=== PATIENT | male | born 1975 | race Caucasian/White ===

== ENCOUNTER → 2017-02-26 | Day surgery (SDC) | payer OTHER ==
[~2017-02-26] MED LIST: APIX5TAB PO; LOSA25TA PO; PROPOFOL 500 MG/50 ML BTL IV ONE; SIMETHICONE SUSP DROPS 40 MG/0.6 ML 30 ML BTL ONE
--- NOTE | 2017-02-26 09:16 | GIPROC ---
[facility] [address] [facility], [address] COLONOSCOPY PROCEDURE REPORT EXAM DATE: 02/26/2017 PATIENT NAME: Santy Oilvas MR #: [id number] BIRTHDATE: 1975 ENDOSCOPIST: Henry Wallace MD ORDER #: [id number] RAILROAD REPAIRER: Bravo Louis RN STATUS: outpatient INDICATIONS: The patient is a 41 yr old male here for a colonoscopy due to unexplained diarrhea PROCEDURE PERFORMED: Colonoscopy with biopsy MEDICATIONS: None and Per Anesthesia. PREP QUALITY: good ESTIMATED BLOOD LOSS: None CONSENT: The patient understands the risks and benefits of the procedure and understands that these risks include, but are not limited to: sedation, allergic reaction, infection, perforation and/or bleeding. Alternative means of evaluation and treatment include, among others: physical exam, x-rays, and/or surgical intervention. The patient elects to proceed with this endoscopic procedure. medical equipment was checked for proper function. Hand hygiene and appropriate measures for infection prevention was taken. After the risks, benefits and alternatives of the procedure were thoroughly explained, Informed consent was verified, confirmed and timeout was successfully executed by the treatment team. A digital exam revealed no abnormalities of the rectum The EC-[id number] ([id number]) endoscope was introduced through the anus and advanced to the cecum, which was identified by both the appendix and ileocecal valve. The instrument was then slowly withdrawn as the colon was fully examined. COLON FINDINGS: A diminutive smooth sessile polyp was found in the rectum. A polypectomy was performed with cold forceps. The resection was complete and the polyp tissue was completely retrieved. The colon mucosa was otherwise normal. Multiple biopsies were performed. Retroflexed views revealed internal hemorrhoids and Retroflexed views revealed medium internal hemorrhoids The scope was then completely withdrawn from the patient and the procedure terminated. PROCEDURE WITHDRAWAL TIME:7.6minutes ADVERSE EVENTS: There were no complications. IMPRESSIONS: 1. A diminutive sessile polyp was found in the rectum; polypectomy was performed with cold forceps 2. The colon mucosa was otherwise normal; multiple biopsies were performed 3. Retroflexed views revealed internal hemorrhoids 4. Retroflexed views revealed medium internal hemorrhoids 5. Revealed no abnormalities of the rectum RECOMMENDATIONS: 1. Await biopsy results. Biopsy results will not be ready for 7-10 days. If you don't hear from us in two weeks, call our office for results. 2. Yearly hemoccult 3. High fiber diet 4. Follow-up: GI Clinic PRN RECALL: Return 5 years Colonoscopy Henry Wallace MD eSigned: Henry Wallace MD 02/26/2017 9:15 AM cc: Herber Dorado M.D and Kilo Edwards [facility]
--- NOTE | 2017-02-26 09:18 | GIPROC ---
[facility] [address] [facility], [address] EGD PROCEDURE REPORT EXAM DATE: 02/26/2017 PATIENT NAME: Santy Olivas MR #: [id number] BIRTHDATE: 1975 ATTENDING: Henry Wallace MD ORDER #: [id number] STRIP MACHINE TENDER: Bravo Louis RN STATUS: outpatient INDICATIONS: The patient is a 41 yr old male here for an EGD due to unexplained diarrhea PROCEDURE PERFORMED: EGD w/ biopsy MEDICATIONS: None, Per Anesthesia, None, and Per Anesthesia. TOPICAL ANESTHETIC: CONSENT: The patient understands the risks and benefits of the procedure and understands that these risks include, but are not limited to: sedation, allergic reaction, infection, perforation and/or bleeding. Alternative means of evaluation and treatment include, among others: physical exam, x-rays, and/or surgical intervention. The patient elects to proceed with this endoscopic procedure. medical equipment was checked for proper function. Hand hygiene and appropriate measures for infection prevention was taken. After the risks, benefits and alternatives of the procedure were thoroughly explained, Informed consent was verified, confirmed and timeout was successfully executed by the treatment team. The patient was anesthetized with topical anesthesia and the EC-3490Li ([id number]) endoscope was introduced through the mouth and advanced to the second portion of the duodenum. Retroflexed views revealed no abnormalities The gastroscope was then slowly withdrawn and removed. ESOPHAGUS: There was LA Class A esophagitis noted. Multiple biopsies were performed. The endoscopy was otherwise normal. STOMACH: Hx of lap band placement noted. There was mild gastritis in the gastric antrum. Multiple biopsies were performed. DUODENUM: The duodenal mucosa appeared normal. Cold forcep biopsies were taken in the second portion. ADVERSE EVENTS: There were no complications. IMPRESSIONS: 1. There was LA Class A esophagitis noted; multiple biopsies were performed 2. Normal endoscopy otherwise 3. Hx of lap band placement noted 4. There was mild gastritis in the gastric antrum; multiple biopsies were performed 5. Normal duodenal mucosa 6. Retroflexed views revealed no abnormalities RECOMMENDATIONS: 1. Await biopsy results. Biopsy results will not be ready for 7-10 days. If you don't hear from us in two weeks, call our office for biopsy results. 2. Follow-up: GI clinic 4 week(s) PATIENT CONDITION: stable DISPOSITION: Home REPEAT EXAM: Henry Wallace MD eSigned: Henry Wallace MD 02/26/2017 9:18 AM cc: Herber Edwards [facility] [place] PATIENT NAME: Santy Olivas MR#: [id number]
== END | disposition home or self-care (01) ==
LOC: ESDC 06:53
PROVIDERS: ATTEND Internal Medicine Gastroenterology
DX: K29.70 Gastritis, unspecified, without bleeding (principal); K62.1 Rectal polyp; K64.8 Other hemorrhoids; K20.9 Esophagitis, unspecified; Z98.84 Bariatric surgery status
CPT/HCPCS: 88305; 88312

== ENCOUNTER 2017-09-18 13:10 | Observation (INO) | payer OTHER ==
[~2017-09-18] VITALS: Ht 198.1 cm; Wt 180.8 kg
[~2017-09-18 13:10] MED LIST changes: -PROPOFOL 500 MG/50 ML BTL IV ONE; -SIMETHICONE SUSP DROPS 40 MG/0.6 ML 30 ML BTL ONE
[2017-09-18 13:13] VITALS: BP 142/74; TEMP 98.1; O2SAT 99
[2017-09-18] MEDS ORDERED: METO50TA PO (13:20)
[2017-09-18] MEDS ORDERED: CHLO25TA2 PO (13:20)
[2017-09-18] MEDS ORDERED: OMEP20TA93 PO (13:21)
[2017-09-18 13:24] VITALS: BP 136/78; PULSE 96; RESP 18; O2SAT 99
[2017-09-18] MEDS ORDERED: SODIUM CHLORIDE 0.9% FLUSH 10 ML FLUSH IVF PRN (13:30)
--- NOTE | 2017-09-18 13:36 | PD ---
HPI Chief Complaint: Cardiac Complaint Time Seen by Provider: 13:20 Travel History International Travel<30 days: No Contact w/Intl Traveler<30days: No Traveled to known affect area: No History of Present Illness HPI 42-year-old male patient with history of atrial fibrillation currently on Eliquis, follows up with Dr. Tay, has been put on metoprolol for rate control , presents to the ER today because he states that over the last few weeks he has noticed he has getting more tired, and today started having palpitations, dizziness, and chest tightness which she currently rates it a 5 out of 10. He states it feels like somebody is pushing on his anterior sternal area. He was seen by urgent care and they found him to be in A. fib with RVR at a rate of 118 bpm. They sent him to the ER for further evaluation. He states that he did eat and had plenty of water to drink today. He states that the symptoms are now subsiding but the chest tightness is still there and he is still having dizziness. He denies any coughing, fevers, vomiting, abdominal pain, or other symptoms. Modifying Factors: None Associated Signs & Symptoms: Palpitations, dizziness, chest tightness Risk Factors: History of atrial fibrillation PFSH Past Medical History Atrial Fibrillation: Yes Depression: Yes Cardiovascular Problems: Yes Diabetes: No Diminished Hearing: No GERD: Yes Hypertension: Yes Influenza Vaccination: No ?: Not Past Surgical History Other Surgery: Yes (LAP BAND SURG.) Social History Alcohol Use: Yes (3-4 WEEK) Tobacco Use: No Substance Use: No Allergies-Medications (Allergen,Severity, Reaction): Coded Allergies: penicillin G (Unverified Allergy, Unknown, 09/18/17) Reported Meds & Prescriptions Reported Meds & Active Scripts Active Reported Omeprazole 20 Mg Tab 20 Mg PO BID Chlorthalidone 25 Mg Tab 25 Mg PO DAILY Metoprolol Tartrate 50 Mg Tab 50 Mg PO BID Eliquis (Apixaban) 5 Mg Tab 5 Mg PO BID Review of Systems Except as stated in HPI: all other systems reviewed are Neg Physical Exam Narrative GENERAL: Well-developed middle-age male patient currently in mild distress. Awake and oriented x3. SKIN: Focused skin assessment warm/dry. HEAD: Atraumatic. Normocephalic. EYES: Pupils equal and round. No scleral icterus. No injection or drainage. ENT: No nasal bleeding or discharge. Mucous membranes pink and moist. NECK: Trachea midline. No JVD. Supple. CARDIOVASCULAR: Fast and irregularly irregular. No rubs murmurs or gallops. RESPIRATORY: No accessory muscle use. Clear to auscultation. Breath sounds equal bilaterally. GASTROINTESTINAL: Abdomen soft, non-tender, nondistended. Hepatic and splenic margins not palpable. MUSCULOSKELETAL: No obvious deformities. No clubbing. No cyanosis. No edema. NEUROLOGICAL: Awake and alert. No obvious cranial nerve deficits. Motor grossly within normal limits. Normal speech. PSYCHIATRIC: Appropriate mood and affect; insight and judgment normal. Data Data Last Documented VS Vital Signs Date Time Temp Pulse Resp B/P (MAP) Pulse Ox O2 Delivery O2 Flow Rate FiO2 09/18/17 14:37 87 18 124/83 (97) 99 Room Air 09/18/17 13:24 2.00 09/18/17 13:13 98.1 Orders Orders Electrocardiogram (09/18/17 13:20) Ckmb (Isoenzyme) Profile (09/18/17 13:20) Complete Blood Count With Diff (09/18/17 13:20) Comprehensive Metabolic Panel (09/18/17 13:20) Magnesium (Mg) (09/18/17 13:20) Prothrombin Time / Inr (Pt) (09/18/17 13:20) Act Partial Throm Time (Ptt) (09/18/17 13:20) Troponin I (09/18/17 13:20) Ecg Monitoring (09/18/17 13:20) Bilateral Bp Monitoring (09/18/17 13:20) Iv Access Insert/Monitor (09/18/17 13:20) Oximetry (09/18/17 13:20) Oxygen Administration (09/18/17 13:20) Sodium Chloride 0.9% Flush (Ns Flush) (09/18/17 13:30) Chest, Pa & Lat (09/18/17 13:20) CKMB (09/18/17 13:40) CKMB% (09/18/17 13:40) Sodium Chlorid 0.9% 500 Ml Inj (Ns 500 M (09/18/17 14:45) Admit Order (Ed Use Only) (09/18/17 14:55) Labs Laboratory Tests Test 09/18/17 13:40 White Blood Count 8.1 TH/MM3 Red Blood Count 5.23 MIL/MM3 Hemoglobin 15.9 GM/DL Hematocrit 47.1 % Mean Corpuscular Volume 90.0 FL Mean Corpuscular Hemoglobin 30.3 PG Mean Corpuscular Hemoglobin Concent 33.7 % Red Cell Distribution Width 12.4 % Platelet Count 221 TH/MM3 Mean Platelet Volume 7.9 FL Neutrophils (%) (Auto) 68.5 % Lymphocytes (%) (Auto) 21.1 % Monocytes (%) (Auto) 8.1 % Eosinophils (%) (Auto) 1.4 % Basophils (%) (Auto) 0.9 % Neutrophils # (Auto) 5.5 TH/MM3 Lymphocytes # (Auto) 1.7 TH/MM3 Monocytes # (Auto) 0.7 TH/MM3 Eosinophils # (Auto) 0.1 TH/MM3 Basophils # (Auto) 0.1 TH/MM3 CBC Comment DIFF FINAL Differential Comment Prothrombin Time 11.1 SEC Prothromb Time International Ratio 1.1 RATIO Activated Partial Thromboplast Time 31.5 SEC Blood Urea Nitrogen 23 MG/DL Creatinine 1.40 MG/DL Random Glucose 96 MG/DL Total Protein 7.6 GM/DL Albumin 3.8 GM/DL Calcium Level 9.4 MG/DL Magnesium Level 1.9 MG/DL Alkaline Phosphatase 64 U/L Aspartate Amino Transf (AST/SGOT) 23 U/L Alanine Aminotransferase (ALT/SGPT) 40 U/L Total Bilirubin 1.1 MG/DL Sodium Level 139 MEQ/L Potassium Level 3.8 MEQ/L Chloride Level 105 MEQ/L Carbon Dioxide Level 25.1 MEQ/L Anion Gap 9 MEQ/L Estimat Glomerular Filtration Rate 56 ML/MIN Total Creatine Kinase 121 U/L Creatine Kinase MB 1.3 NG/ML Troponin I LESS THAN 0.02 NG/ML MDM Medical Decision Making Medical Screen Exam Complete: Yes Emergency Medical Condition: Yes Medical Record Reviewed: Yes Interpretation(s) EKG shows atrial fibrillation at a rate of 108 bpm. No signs of acute ST elevations or depressions. Laboratory Tests Test 09/18/17 13:40 Monocytes (%) (Auto) 8.1 % (0.0-8.0) Activated Partial Thromboplast Time 31.5 SEC (24.3-30.1) Blood Urea Nitrogen 23 MG/DL (7-18) Creatinine 1.40 MG/DL (0.60-1.30) Total Bilirubin 1.1 MG/DL (0.2-1.0) Estimat Glomerular Filtration Rate 56 ML/MIN (>89) Troponin I LESS THAN 0.02 NG/ML Last 24 hours Impressions Chest X-Ray 09/18/17 1320 Signed Impressions: CONCLUSION: No acute cardiopulmonary process. Differential Diagnosis Dehydration versus electrolyte abnormalities versus ACS versus dysrhythmias Narrative Course Chest x-ray did not show any signs of acute pulmonary processes. EKG shows A. fib with RVR at 108 beats per minute. He is slowly slowed down on his own and IV fluids were given in the ER, suspect that there may be some dehydration causing some of the symptoms. He may have been overheated as well. However, is continued to have chest pains in the ER and a chest pain workup was done and was fairly unremarkable. My plan would be to admit him for further evaluation of chest pain as well. At this point, case was discussed with Dr. Power for admission. Diagnosis Primary Impression: Atrial fibrillation with RVR Additional Impressions: Chest pain Dehydration Admitting Information Admitting Physician Requests: Admit Isi Diggs MD Sep 18, 2017 13:36
[2017-09-18 13:55] LABS: AUTOMATED NEUTROPHIL # 5.5 TH/MM3 (1.8-7.7); BASOPHIL # 0.1 TH/MM3 (0-0.2); BASOPHIL % 0.9 % (0.0-2.0); EOSINOPHIL # 0.1 TH/MM3 (0-0.4); EOSINOPHIL % 1.4 % (0.0-4.0); HEMATOCRIT 47.1 % (39.0-51.0); HEMOGLOBIN 15.9 GM/DL (13.0-17.0); LYMPH % 21.1 % (9.0-44.0); LYMPHOCYTE # 1.7 TH/MM3 (1.0-4.8); MEAN CORPUSCULAR HEMOGLOBIN 30.3 PG (27.0-34.0); MEAN CORPUSCULAR HGB CONC 33.7 % (32.0-36.0); MEAN PLATELET VOLUME 7.9 FL (7.0-11.0); MONO % 8.1 % (0.0-8.0); MONOCYTE # 0.7 TH/MM3 (0-0.9); NEUT % 68.5 % (16.0-70.0); PLATELET COUNT 221 TH/MM3 (150-450); RED BLOOD COUNT 5.23 MIL/MM3 (4.50-5.90); RED CELL DISTRIBUTION WIDTH 12.4 % (11.6-17.2); WHITE BLOOD COUNT 8.1 TH/MM3 (4.0-11.0)
[2017-09-18 14:10] LABS: CHLORIDE 105 MEQ/L (98-107); SODIUM (NA) 139 MEQ/L (136-145)
[2017-09-18 14:11] LABS: INTERNATIONAL NORMALIZED RATIO 1.1 RATIO; PROTHROMBIN TIME - PATIENT 11.1 SEC (9.8-11.6)
[2017-09-18 14:14] LABS: CALCIUM 9.4 MG/DL (8.5-10.1)
[2017-09-18 14:15] LABS: ALBUMIN 3.8 GM/DL (3.4-5.0); BICARBONATE 25.1 MEQ/L (21.0-32.0); BLOOD UREA NITROGEN 23 MG/DL (7-18); GLUCOSE,RANDOM 96 MG/DL (74-106); MAGNESIUM 1.9 MG/DL (1.5-2.5)
[2017-09-18 14:18] LABS: ALT (GPT) 40 U/L (12-78); AST (GOT) 23 U/L (15-37); GLOMERULAR FILTRATION RATE 56 ML/MIN (>89)
[2017-09-18 14:19] LABS: TOTAL BILIRUBIN ADULT 1.1 MG/DL (0.2-1.0)
[2017-09-18 14:20] LABS: TOTAL PROTEIN 7.6 GM/DL (6.4-8.2)
[2017-09-18 14:21] LABS: ALKALINE PHOSPHATASE 64 U/L (45-117)
[2017-09-18 14:23] LABS: TROPONIN I LESS THAN 0.02 NG/ML (0.02-0.05)
--- NOTE | 2017-09-18 14:31 | RADRPT ---
EXAM DATE: 09/18/2017 1:50 PM EDT AGE/SEX: 42 years / Male INDICATIONS: Syncopal episode, heart palpations, chest pressure/tightness, short of breath. CLINICAL DATA: This is the patient's initial encounter. Patient reports that signs and symptoms have been present for 1 day and indicates a pain score of 5/10. MEDICAL/SURGICAL HISTORY: Hypertension. Gastroesophageal reflux disease. A-fib. Sleep apnea. . Lap band. COMPARISON: No prior exams available for comparison. FINDINGS: PA and lateral views of the chest demonstrate the lungs to be symmetrically aerated without evidence of mass, infiltrate or effusion. The cardiomediastinal contours are unremarkable. Osseous structures are intact. CONCLUSION: No acute cardiopulmonary process. Electronically signed by: Herber Gilbert MD 09/18/2017 2:30 PM EDT
[2017-09-18 14:37] VITALS: BP 124/83; PULSE 87; RESP 18; O2SAT 99
[2017-09-18] MEDS ORDERED: SODIUM CHLORID 0.9% 500 ML INJ 500 ML IV ONE (14:45)
[2017-09-18] MEDS: SODIUM CHLOR 0.9% 1000 ML INJ 1,000 ML IV SCH (15:01)
[2017-09-18] MEDS ORDERED: ACETAMINOPHEN 325 MG TAB PO PRN (15:15)
[2017-09-18] MEDS ORDERED: SENNOSIDES 8.6 MG TAB PO PRN (15:15)
[2017-09-18] MEDS ORDERED: SODIUM CHLORIDE 0.9% FLUSH 10 ML FLUSH IV FLUSH PRN (15:15)
[2017-09-18] MEDS ORDERED: MAGNESIUM HYDROXIDE SUSP 30 ML CUP PO PRN (15:15)
[2017-09-18] MEDS ORDERED: LACTULOSE SYRUP 20 GM/30 ML CUP PO PRN (15:15)
[2017-09-18] MEDS ORDERED: BISACODYL 10 MG SUPP RECTAL PRN (15:15)
[2017-09-18 16:22] VITALS: PULSE 80
[2017-09-18 17:00] VITALS: BP_SYST 131; BP_DIAS 83; BP_DIAS 84; PULSE 110; RESP 16; RESP 18; TEMP 97.7; O2SAT 98; O2SAT 99
--- NOTE | 2017-09-18 19:11 | EKG ---
Date Performed: 09/18/2017 Time Performed: 13:12:50 PTAGE: 42 years EKG: ATRIAL FIBRILLATION WITH RAPID VENTRICULAR RESPONSE ABNORMAL RHYTHM ECG PREVIOUS TRACING : 02/02/2016 09.10 When compared to prior EKG,patient now appears to be in atr ial firbrillation with rapid ventricular rate DOCTOR: Mary Umana Interpretating Date/Time 09/18/2017 19:09:21
[2017-09-18] MEDS: SODIUM CHLORIDE 0.9% FLUSH 10 ML FLUSH IV FLUSH SCH (20:47)
[2017-09-18] MEDS: DOCUSATE SODIUM 50 MG/SENNA 8.6 MG TAB PO SCH (21:00)
[2017-09-18] MEDS: METOPROLOL TARTRATE 50 MG TAB PO SCH (21:31)
[2017-09-18] MEDS: APIXABAN 5 MG TABLET PO SCH (21:31)
[2017-09-19] VITALS: BP 137/73; PULSE 81; RESP 20; TEMP 96.2; O2SAT 100
[2017-09-19] MEDS: SODIUM CHLOR 0.9% 1000 ML INJ 1,000 ML IV SCH (01:01)
[2017-09-19 04:00] VITALS: BP 103/50; PULSE 71; RESP 18; TEMP 96.4; O2SAT 98
[2017-09-19 06:18] LABS: BICARBONATE 22.8 MEQ/L (21.0-32.0); CALCIUM 8.4 MG/DL (8.5-10.1); CREATININE 1.1 MG/DL (0.60-1.30)
--- NOTE | 2017-09-19 07:50 | PD.CONS ---
HPI Consult Requested By Primary Care Physician Herber Dorado, DO History of Present Illness 42-year-old morbidly obese male with past medical history of A. fib, HTN, GERD who presented for nausea, dizziness, shortness of breath, and heart racing. 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 He began feeling nauseous, dizzy, short of breath , and with heart racing sensation. He went to urgent care and they told him to go to the ED. Patient was found to have rapid A. fib so he was admitted for further evaluation. The patient's labs at presentation suggests dehydration which have improved after holding his home chlorthalidone and giving IVF overnight. His heart rate is currently atrial fibrillation in the 80s. The patient is normally very active and walks a few miles a week with some shortness of breath. We have been working him up for shortness of breath as outpatient with recent normal echocardiogram. He does get some chest heaviness when he is short of breath, chronic problem, no acute change, previously negative Lexiscan for this, and he denies any specific chest pains at this time. He attributes his shortness of breath to gaining 100 pounds over the past 2 years with failed lap band and is currently undergoing workup for gastric sleeve. He actually has an appointment with us this coming week for preoperative evaluation. He has wanted to avoid having an A. fib ablation in favor of losing weight. He is feeling much better this time and hoping to follow-up with his outpatient for any further workup that may be needed. (Óscar Mcwilliams) Review of Systems Negative except as stated in HPI (Óscar Mcwilliams) Past Family Social History Allergies: Coded Allergies: penicillin G (Unverified Allergy, Unknown, 09/18/17) Past Medical History Atrial fibrillation with failed DCC 2015 Hypertension GERD Morbid obesity Past Surgical History LAP-BAND Reported Medications Reported Meds & Active Scripts Active Reported Omeprazole 20 Mg Tab 20 Mg PO BID Chlorthalidone 25 Mg Tab 25 Mg PO DAILY Metoprolol Tartrate 50 Mg Tab 50 Mg PO BID Eliquis (Apixaban) 5 Mg Tab 5 Mg PO BID Active Ordered Medications Current Medications Medications (Trade) Dose Ordered Sig/Ashkan Route Start Time Stop Time Status Last Admin Sodium Chloride 1,000 ml @ 100 mls/hr Q10H IV 09/18/17 15:01 09/19/17 01:01 (NS Flush) 2 ml UNSCH PRN IV FLUSH 09/18/17 15:15 (NS Flush) 2 ml BID IV FLUSH 09/18/17 21:00 (Tylenol) 650 mg Q6H PRN PO 09/18/17 15:15 (Mary-Colace) 1 tab BID PO 09/18/17 21:00 (Milk Of Magnesia Liq) 30 ml Q12H PRN PO 09/18/17 15:15 (Senokot) 17.2 mg Q12H PRN PO 09/18/17 15:15 (Dulcolax Supp) 10 mg DAILY PRN RECTAL 09/18/17 15:15 (Lactulose Liq) 30 ml DAILY PRN PO 09/18/17 15:15 (Eliquis) 5 mg BID PO 09/18/17 21:00 09/18/17 21:31 (Lopressor) 50 mg BID PO 09/18/17 21:00 09/18/17 21:31 (Protonix) 40 mg DAILY PO 09/19/17 09:00 Social History Occasional alcohol use (Óscar Mcwilliams) Physical Exam Vital Signs Vital Signs Date Time Temp Pulse Resp B/P (MAP) Pulse Ox O2 Delivery O2 Flow Rate FiO2 09/19/17 04:00 96.4 71 18 103/50 (67) 98 09/19/17 00:00 96.2 81 20 137/73 (94) 100 09/18/17 17:00 97.7 110 16 131/84 (100) 99 09/18/17 17:00 97.7 110 18 131/83 (99) 98 09/18/17 16:22 80 09/18/17 15:27 09/18/17 14:37 87 18 124/83 (97) 99 Room Air 09/18/17 14:37 102 09/18/17 13:24 96 18 136/78 (97) 99 Nasal Cannula 2.00 09/18/17 13:23 99 Nasal Cannula 2.00 09/18/17 13:16 110 18 99 Room Air 09/18/17 13:13 98.1 106 18 142/74 (96) 99 Physical Exam GENERAL: Well-developed well-nourished. Morbidly obese. In no acute distress. NECK: No carotid bruits. No JVD. CARDIOVASCULAR: Irregular controlled rate and irregular rhythm. No murmur appreciated. RESPIRATORY: No accessory muscle use. Clear to auscultation. Breath sounds equal bilaterally. MUSCULOSKELETAL: No clubbing or cyanosis. No edema. NEUROLOGICAL: Awake and alert. Normal speech. Laboratory Laboratory Tests Test 09/18/17 13:40 09/18/17 18:04 09/19/17 00:16 White Blood Count 8.1 Red Blood Count 5.23 Hemoglobin 15.9 Hematocrit 47.1 Mean Corpuscular Volume 90.0 Mean Corpuscular Hemoglobin 30.3 Mean Corpuscular Hemoglobin Concent 33.7 Red Cell Distribution Width 12.4 Platelet Count 221 Mean Platelet Volume 7.9 Neutrophils (%) (Auto) 68.5 Lymphocytes (%) (Auto) 21.1 Monocytes (%) (Auto) 8.1 Eosinophils (%) (Auto) 1.4 Basophils (%) (Auto) 0.9 Neutrophils # (Auto) 5.5 Lymphocytes # (Auto) 1.7 Monocytes # (Auto) 0.7 Eosinophils # (Auto) 0.1 Basophils # (Auto) 0.1 CBC Comment DIFF FINAL Differential Comment Prothrombin Time 11.1 Prothromb Time International Ratio 1.1 Activated Partial Thromboplast Time 31.5 Blood Urea Nitrogen 23 21 Creatinine 1.40 1.10 Random Glucose 96 120 Total Protein 7.6 Albumin 3.8 Calcium Level 9.4 8.4 Magnesium Level 1.9 Alkaline Phosphatase 64 Aspartate Amino Transf (AST/SGOT) 23 Alanine Aminotransferase (ALT/SGPT) 40 Total Bilirubin 1.1 Sodium Level 139 139 Potassium Level 3.8 3.5 Chloride Level 105 106 Carbon Dioxide Level 25.1 22.8 Anion Gap 9 10 Estimat Glomerular Filtration Rate 56 73 Total Creatine Kinase 121 Creatine Kinase MB 1.3 Troponin I LESS THAN 0.02 LESS THAN 0.02 LESS THAN 0.02 (Óscar Mcwilliams) Result Diagram: 09/18/17 1340 09/19/17 0016 Imaging Last Impressions Chest X-Ray 09/18/17 1320 Signed Impressions: CONCLUSION: No acute cardiopulmonary process. (Óscar Mcwilliams) Assessment and Plan Assessment and Plan 42-year-old morbidly obese male with past medical history of A. fib, HTN, GERD who presented for nausea, dizziness, shortness of breath, and heart racing A. fib with RVR: Likely secondary to dehydration. Rate is improved overnight after IV hydration and is currently controlled on home metoprolol. Continue Eliquis for anticoagulation. Shortness of breath: Chronic. Previous negative outpatient workup, possibly secondary to body habitus. Chest x-ray is negative. Can continue outpatient follow-up for this. No further inpatient workup needed at this time. Patient can continue scheduled outpatient follow-up with us in the coming week. Discussed Condition With Patient, Dr. Tono Sinha (Óscar Mcwilliams) Assessment and Plan ok to dc fu in opd (Sharath Tay MD) Óscar Mcwilliams Sep 19, 2017 07:50 Sharath Tay MD Sep 19, 2017 08:14
[2017-09-19 08:00] VITALS: BP 119/65; PULSE 79; RESP 18; TEMP 97.7; O2SAT 98
[2017-09-19] MEDS: METOPROLOL TARTRATE 50 MG TAB PO SCH (08:19)
[2017-09-19] MEDS: SODIUM CHLORIDE 0.9% FLUSH 10 ML FLUSH IV FLUSH SCH (08:20)
[2017-09-19] MEDS: APIXABAN 5 MG TABLET PO SCH (08:20)
[2017-09-19] MEDS: DOCUSATE SODIUM 50 MG/SENNA 8.6 MG TAB PO SCH (08:21)
[2017-09-19] MEDS ORDERED: PANTOPRAZOLE SOD 40 MG DELAYED RELEASE TAB PO SCH (09:00)
--- NOTE | 2017-09-19 11:27 | HHI.HP ---
HPI Service [facility] Hospitalists Primary Care Physician Herber Dorado, DO Admission Diagnosis Chest pain/A. fib with RVR Travel History International Travel<30 Days: No Contact w/Intl Traveler <30 Da: No Traveled to Known Affected Are: No History of Present Illness This is a very pleasant 42-year-old male with past medical history of atrial fibrillation, hypertension, morbid obesity who presented to the ER yesterday evening with chest pain, shortness of breath and dizziness. The patient works in his own construction company and states he was outside yesterday for hours. He started to get quite dizzy and short of breath with exertion. He went to an urgent care who referred him to the ER. At the urgent care he was found to be in A. fib with mild tachycardia at 120. By the time he got to the ER heart rate was normal. The patient states that he has been getting short of breath with exertion over the past several months which she attributes to weight gain. Per his automation engineering manager Dr. Arevalo this is not a new finding for him. He does have a negative Lexiscan stress test in 2016. The patient also had a DC cardioversion in the past which failed. Patient had history of lap band about 4 years ago and is currently saving up money for a sleeve gastrectomy. Patient does not have any chest pain or pressure at rest. He was mildly dehydrated on admission with cr of 1.4. EKG showed afib with mild tachycardia. Serial cardiac enzymes have been negative. 10 pt ROS otherwise negative. Past Family Social History Past Medical History HTN GERD Morbid obesity afib Past Surgical History lap band Reported Medications Allergies Coded Allergies Type Severity Reaction Last Updated Verified penicillin G Allergy Unknown 09/18/17 No Active Scripts Medications Dose Route/Sig Max Daily Dose Days Date Category Omeprazole 20 Mg Tab 20 Mg PO BID 09/18/17 Reported Chlorthalidone 25 Mg Tab 25 Mg PO DAILY 09/18/17 Reported Metoprolol Tartrate 50 Mg Tab 50 Mg PO BID 09/18/17 Reported Eliquis (Apixaban) 5 Mg Tab 5 Mg PO BID 02/02/16 Reported Allergies: Coded Allergies: penicillin G (Unverified Allergy, Unknown, 09/18/17) Family History reviewed, NC Social History no et/t/d Physical Exam Vital Signs Vital Signs Date Time Temp Pulse Resp B/P (MAP) Pulse Ox O2 Delivery O2 Flow Rate FiO2 09/19/17 08:00 97.7 79 18 119/65 (83) 98 09/19/17 04:00 96.4 71 18 103/50 (67) 98 09/19/17 00:00 96.2 81 20 137/73 (94) 100 09/18/17 17:00 97.7 110 16 131/84 (100) 99 09/18/17 17:00 97.7 110 18 131/83 (99) 98 09/18/17 16:22 80 09/18/17 15:27 09/18/17 14:37 87 18 124/83 (97) 99 Room Air 09/18/17 14:37 102 09/18/17 13:24 96 18 136/78 (97) 99 Nasal Cannula 2.00 09/18/17 13:23 99 Nasal Cannula 2.00 09/18/17 13:16 110 18 99 Room Air 09/18/17 13:13 98.1 106 18 142/74 (96) 99 Physical Exam GENERAL: This is a well-nourished, well-developed very pleasant morbidly obese male patient, in no apparent distress. SKIN: No rashes, ecchymoses or lesions. Cool and dry. HEAD: Atraumatic. Normocephalic. EYES: Pupils equal round and reactive. Extraocular motions intact. No scleral icterus. No injection or drainage. NECK: Trachea midline. No JVD or lymphadenopathy. Supple, nontender, no meningeal signs. CARDIOVASCULAR: Irregular rate and rhythm without murmurs, gallops, or rubs. RESPIRATORY: Clear to auscultation. Breath sounds equal bilaterally. No wheezes , rales, or rhonchi. GASTROINTESTINAL: Abdomen soft, non-tender, nondistended. MUSCULOSKELETAL: chronic 1+ pedal edema with venous stasis changes of b/l LE. NEUROLOGICAL: Awake and alert. Motor and sensory grossly within normal limits. Normal speech. Laboratory Laboratory Tests Test 09/18/17 13:40 09/18/17 18:04 09/19/17 00:16 White Blood Count 8.1 Red Blood Count 5.23 Hemoglobin 15.9 Hematocrit 47.1 Mean Corpuscular Volume 90.0 Mean Corpuscular Hemoglobin 30.3 Mean Corpuscular Hemoglobin Concent 33.7 Red Cell Distribution Width 12.4 Platelet Count 221 Mean Platelet Volume 7.9 Neutrophils (%) (Auto) 68.5 Lymphocytes (%) (Auto) 21.1 Monocytes (%) (Auto) 8.1 Eosinophils (%) (Auto) 1.4 Basophils (%) (Auto) 0.9 Neutrophils # (Auto) 5.5 Lymphocytes # (Auto) 1.7 Monocytes # (Auto) 0.7 Eosinophils # (Auto) 0.1 Basophils # (Auto) 0.1 CBC Comment DIFF FINAL Differential Comment Prothrombin Time 11.1 Prothromb Time International Ratio 1.1 Activated Partial Thromboplast Time 31.5 Blood Urea Nitrogen 23 21 Creatinine 1.40 1.10 Random Glucose 96 120 Total Protein 7.6 Albumin 3.8 Calcium Level 9.4 8.4 Magnesium Level 1.9 Alkaline Phosphatase 64 Aspartate Amino Transf (AST/SGOT) 23 Alanine Aminotransferase (ALT/SGPT) 40 Total Bilirubin 1.1 Sodium Level 139 139 Potassium Level 3.8 3.5 Chloride Level 105 106 Carbon Dioxide Level 25.1 22.8 Anion Gap 9 10 Estimat Glomerular Filtration Rate 56 73 Total Creatine Kinase 121 Creatine Kinase MB 1.3 Troponin I LESS THAN 0.02 LESS THAN 0.02 LESS THAN 0.02 Result Diagram: 09/18/17 1340 09/19/17 0016 Imaging Last Impressions Chest X-Ray 09/18/17 1320 Signed Impressions: CONCLUSION: No acute cardiopulmonary process. Caprini VTE Risk Assessment Caprini VTE Risk Assessment: Mod/High Risk (score >= 2) Caprini Risk Assessment Model Point Value = 1 Point Value = 2 Point Value = 3 Point Value = 5 Age 41-60 Minor surgery BMI > 25 kg/m2 Swollen legs Varicose veins or History of unexplained or recurrent spontaneous Oral contraceptives or hormone replacement Sepsis (< 1 month) Serious lung disease, including pneumonia (< 1 month) Abnormal pulmonary function Acute myocardial infarction Congestive heart failure (< 1 month) History of inflammatory bowel disease Medical patient at bed rest Age 61-74 Arthroscopic surgery Major open surgery (> 45 min) Laparoscopic surgery (> 45 min) Malignancy Confined to bed (> 72 hours) Immobilizing plaster cast Central venous access Age >= 75 History of VTE Family history of VTE Factor V Leiden Prothrombin [id number] Lupus anticoagulant Anticardiolipin antibodies Elevated serum homocysteine Heparin-induced thrombocytopenia Other congenital or acquired thrombophilia Stroke (< 1 month) Elective arthroplasty Hip, pelvis, or leg fracture Acute spinal cord injury (< 1 month) Prophylaxis Regimen Total Risk Factor Score Risk Level Prophylaxis Regimen 0-1 Low Early ambulation 2 Moderate Order ONE of the following: *Sequential Compression Device (SCD) *Heparin 5000 units SQ BID 3-4 Higher Order ONE of the following medications: *Heparin 5000 units SQ TID *Enoxaparin/Lovenox 40 mg SQ daily (WT < 150 kg, CrCl > 30 mL/min) *Enoxaparin/Lovenox 30 mg SQ daily (WT < 150 kg, CrCl > 10-29 mL/min) *Enoxaparin/Lovenox 30 mg SQ BID (WT < 150 kg, CrCl > 30 mL/min) AND/OR *Sequential Compression Device (SCD) 5 or more Highest Order ONE of the following medications: *Heparin 5000 units SQ TID (Preferred with Epidurals) *Enoxaparin/Lovenox 40 mg SQ daily (WT < 150 kg, CrCl > 30 mL/min) *Enoxaparin/Lovenox 30 mg SQ daily (WT < 150 kg, CrCl > 10-29 mL/min) *Enoxaparin/Lovenox 30 mg SQ BID (WT < 150 kg, CrCl > 30 mL/min) AND *Sequential Compression Device (SCD) Assessment and Plan Problem List: (1) Chest pain ICD Codes: R07.9 - Chest pain, unspecified Status: Acute (2) Atrial fibrillation with RVR ICD Codes: I48.91 - Unspecified atrial fibrillation Status: Acute (3) Dehydration ICD Codes: E86.0 - Dehydration Status: Acute Assessment and Plan -Chest pain, shortness of breath, afib with mild RVR - now resolved. negative serial enzymes and EKG. had negative lexiscan in 2016. some of his symptoms ( shortness of breath with exertion and chest heaviness when short of breath are somewhat chronic for him). He has been seen and cleared by cardiology, and will f/u with Dr. Arevalo next week. he will continue on his home dose of eliquis and metoprolol. -Mild [place] and mild dehydration. On admission, his chlorthalidone was held and he was given gentle IV fluids overnight. He feels back to baseline. He has been seen by cardiology and cleared for discharge. He will follow-up with Dr. arevalo next week. I did discuss the importance of making sure he is drinking plenty of fluids especially being outside and on the chlorthalidone. I did ask him to follow-up with his PCP Dr. Dorado next week. DC home today. Yaneth Power MD Sep 19, 2017 11:27
== END 2017-09-19 13:20 | disposition home or self-care (01) ==
LOC: PHED 13:10 → PHEDA 14:56 → PH3B 15:30
PROVIDERS: ADMIT Family Medicine; ATTEND Family Medicine
DX: R07.89 Other chest pain (principal); R06.02 Shortness of breath; N17.9 Acute kidney failure, unspecified; E86.0 Dehydration; I48.91 Unspecified atrial fibrillation; I87.8 Other specified disorders of veins; R60.0 Localized edema; R00.0 Tachycardia, unspecified; I10 Essential (primary) hypertension; K21.9 Gastro-esophageal reflux disease without esophagitis; F32.9 Major depressive disorder, single episode, unspecified; E66.01 Morbid (severe) obesity due to excess calories; Z79.01 Long term (current) use of anticoagulants; Z79.899 Other long term (current) drug therapy; Z98.84 Bariatric surgery status
CPT/HCPCS: 71046; 80048; 80053; 82550; 82552; 83735; 84484; 85025; 85610; 85730; 93005; 96360; 96361; 99285; G0378; J7030; J7040

== ENCOUNTER 2017-12-03 07:30 | Inpatient (IN) ==
[2017-12-10] MEDS ORDERED: Chlorhexidine Gluconate 2% 1 Pack (2 Cloths) TOPICAL ONE (07:46)
[2017-12-10] MEDS ORDERED: Metoprolol Tartrate 25 MG Tablet PO ONE (07:46)
[2017-12-10] MEDS ORDERED: Sodium Chlor 0.9% Inj 500 ML IV.SIG SCH (08:00)
[2017-12-10] MEDS ORDERED: Scopalamine 1.5 MG Patch T-DERMAL SCH (08:00)
[2017-12-10] MEDS ORDERED: Vancomycin Inj 1,000 MG in Sodium Chlor 0.9% Inj 250 ML IV.SIG SCH (08:00)
[2017-12-10] MEDS ORDERED: fentaNYL Citrate Inj 100 MCG/2 ML Ampul ONE ×2 (13:36→17:31)
[2017-12-10] MEDS ORDERED: Bupivacaine/Epinephrine Inj 0.25% 50 ML Vial ONE (13:43)
[2017-12-10] MEDS ORDERED: Neostigmine Inj 5 MG/5 ML Syringe IV.PUSH ONE (14:00)
[2017-12-10] MEDS ORDERED: Glycopyrrolate Inj 1 MG/5 ML Syringe IV.PUSH ONE (14:00)
[2017-12-10] MEDS ORDERED: Succinylcholine Inj 100 MG/5 ML Syringe IV.PUSH ONE (14:00)
[2017-12-10] MEDS ORDERED: Lidocaine PF 1% Inj 5 ML Syringe INFILTRATN ONE (14:00)
[2017-12-10] MEDS ORDERED: Phenylephrine/NS 1000 MCG/10ML Syringe IV.PUSH ONE (14:00)
--- NOTE | 2017-12-10 14:36 | P.OP ---
- Preoperative Diagnosis (1) Morbid obesity with BMI of 50.0-59.9, adult - Postoperative Diagnosis (1) Morbid obesity with BMI of 50.0-59.9, adult Date of procedure: 12/10/17 Procedure: lap band removal conversion to sleeve gastrectomy Anesthesia: GETA Surgeon: Sj Giles MD Estimated blood loss (mL): 10 Pathology: none sent Operation and Findings: lap band with adhesions
[2017-12-10] MEDS ORDERED: Acetaminophen-HYDROcodone 325/7.5 Liq 15 ML UDC PO PRN (17:29)
[2017-12-10] MEDS ORDERED: diphenhydrAMINE HCl 12.5 MG/5 ML Elixir UDC PO PRN (17:29)
[2017-12-10] MEDS ORDERED: Post-op Orders (for Pharmacy) OTHER STA (17:29)
[2017-12-10] MEDS ORDERED: KCL 20 mEq/D5W/NaCl 0.45% Inj 1,000 ML ONE (17:42)
[2017-12-10] MEDS ORDERED: *morphine SULFATE 10 MG/ML PERIprocedure ONLY ONE (17:46)
[2017-12-10] MEDS: KCL 20 mEq/D5W/NaCl 0.45% Inj 1,000 ML IV.CONT SCH (17:55)
[2017-12-10] MEDS ORDERED: Morphine Inj 30 MG/30 ML PCA.VIAL PCA ONE (17:59)
[2017-12-10] MEDS ORDERED: Morphine Inj 30 MG/30 ML PCA.VIAL PCA PRN (18:13)
[2017-12-10] MEDS ORDERED: Naloxone Inj 0.4 MG/ML Vial IV.PUSH PRN (18:13)
[2017-12-10] MEDS ORDERED: *Labetalol HCl Inj 100 MG/20 ML Vial PERIprocedural Use ONLY IV.PUSH ONE (19:08)
--- NOTE | 2017-12-10 21:27 | MP ---
cc: Sj Giles MD DATE OF OPERATION: 12/10/2017 PREOPERATIVE DIAGNOSIS: Morbid obesity, body mass index of 51. History of laparoscopic gastric band with obstructive sleep apnea, hypertension, hypercholesterolemia. POSTOPERATIVE DIAGNOSES: Morbid obesity, body mass index of 51. History of laparoscopic gastric band with obstructive sleep apnea, hypertension, hypercholesterolemia. PROCEDURE PERFORMED: 1. Laparoscopic band removal and all of its components. 2. Laparoscopic sleeve gastrectomy over a ViSiGi 36-American bougie. 3. Laparoscopic lysis of adhesions. SURGEON: Sj Giles MD DIRECTOR NEW PRODUCT: Alfonso Leggett MD. Dr. Leggett assisted with camera control and retraction ANESTHESIA: GETA. IV FLUIDS: See anesthesia sheet. ESTIMATED BLOOD LOSS: 20 mL. DRAINS: None. COMPLICATIONS: None. WOUND CLASSIFICATION: Clean/contaminated. SPECIMENS: None. FINDINGS: Scarring around the GE junction where a laparoscopic band placement was. No leak with methylene blue to the sleeve staple line. Minimal bleeding points, controlled. Several intra-abdominal adhesions. Examination on the back table of port and tubing confirmed complete removal of the port and all its components. INDICATIONS: The patient is a morbidly obese male with history of laparoscopic gastric band in 2005. Also, weight gain, malfunction band. Multiple medical issues with apnea, hypertension, hypercholesteremia; multiple attempts at weight loss without success. Therefore, decision was for band removal and conversion sleeve gastrectomy. DETAILS OF PROCEDURE: The patient was taken to the operating suite, placed in supine position. He was prepped and draped in usual sterile fashion after induction of general endotracheal anesthesia. Brief timeout demonstrating correct patient, procedure, surgical site. We were all in agreement with this. Attention first directed to the umbilicus where local anesthetic was injected, 15 cm subxiphoid. A 15 blade was used to make a stab jordon incision. The Visiport, 5 mm scope was entered into the abdomen safely. Abdomen was insufflated to 15 mmHg pneumoperitoneum. On cursory inspection, no evidence of injury. Several other ports were placed, including a right upper quadrant 5 mm port for liver retraction, a right mid port 15 size, was placed; a left lower quadrant 5 mm port; and a left lateral quadrant 5 mm port. The patient was placed in reverse Trendelenburg and airplaned to the right. Marcella flex liver retractor was placed to retract the liver. There were several adhesions between the band and the liver and the GE junction and the stomach, preventing initial placement of the retractor. These bands were lysed to mobilize the band and the retractor of the liver was readjusted or replaced. The adhesions to the gastric band were lysed and taken down. The buckle was cut and removed from the abdomen. The band portion was also removed from the abdomen. The chronic scarred tract was identified. Tract was lysed and mobilized. GE junction was mobilized to identify left dusty as well. There were minimal bleeding points, small pieces of SNoW anticoagulant was placed at the GE junction. Then, attention was directed to the greater curvature of the stomach. The gastrocolic ligament was taken down from the greater curvature of the stomach 5 cm from the pylorus, using Harmonic scalpel all the way up to the GE junction and 1 cm from this. Again, noted some scarring at the GE junction. Once the gastrocolic ligament was mobilized off the greater curvature, a ViSiGi 36-American bougie was entered and advanced down the esophagus into the stomach, and placed just proximal to pylorus. An Endo GI stapler was obtained and used with a reinforced SeamGuard, initial black load followed by green loads, removing approximately 75% of the stomach. The extra stomach scarring again was lysed and mobilized. The stomach staple line was done with a full view of stomach medially approximately 1.5 cm lateral to the GE junction. Next, methylene blue was used to check the staple line. Three syringes were used, 180 mL, without evidence of leak. There was some minimal bleeding along the staple line, which 5 mm clips were placed and small bleeding in the mesentery, which was clipped. Also, small pieces of SNoW were placed again to achieve anticoagulation, along with assistance of Harmonic scalpel. Next Evicel was placed along the staple line and in the GE junction and the mesentery. Posterior attachments noted to be relatively intact to the posterior stomach. Next, the ViSiGi bougie was removed and the Marcella-Flex retractor was removed as well. The stomach was removed from the 15 mm right lower quadrant trocar. A 0 Vicryl [id number] suture was used as a transfascial suture to close the peritoneum over the 15 mm trocar. The abdomen then desufflated. Dr. Leggett assisted with camera control and retraction The midline 5 mm trocar incision was extended due to its proximity of the port, this was done with a 15 blade. Further dissection was done with electric Bovie cautery in order to remove the port from the port pocket. Port was identified and grasped with a Bebeto clamp and the sutures were incised and in order to mobilize and remove the port. The scar capsule was also removed as well. Electric Bovie cautery was used for hemostasis. The port tubing was confirmed to fit on the previously removed band, noted to be one single solid piece, confirming removal of the entirety of tubing and port and band components. This was examined on the back table. Then, 0 Prolene was used to close the port pocket, 3-0 Vicryl was used to close the subcutaneous tissue in layers. A 4-0 Monocryl used at all skin incisions, subcuticular suture, followed by sterile dressings including Steri-Strips and Mastisol. The patient tolerated the procedure well. There were no intraoperative complications. All lap and instrument counts were correct at the end of the procedure. The patient was extubated and taken stable to PACU. MD JABIER Cast/suleman , 06:04 PM , 06:19 PM ELVIN
[2017-12-10] MEDS ORDERED: Enoxaparin Inj 40 MG/0.4 ML Syringe SQ SCH (21:30)
[2017-12-11] MEDS: KCL 20 mEq/D5W/NaCl 0.45% Inj 1,000 ML IV.CONT SCH ×2 (01:38→14:07)
[2017-12-11] MEDS ORDERED: Vancomycin Inj 1,000 MG in Sodium Chlor 0.9% Inj 250 ML IV.SIG SCH (03:00)
[2017-12-11 06:38] LABS: Baso % (Auto) 0.1 % (0.0-2.0); Hematocrit 44.2 % (39.0-51.0); Hemoglobin 15.2 gm/dL (13.0-17.0); Lymph # (Auto) 0.7 th/mm3 (1.0-4.8); Lymph % (Auto) 7.5 % (9.0-44.0); Mean Corpuscular HGB Conc 34.4 % (32.0-36.0); Mean Corpuscular Hemoglobin 31.1 pg (27.0-34.0); Mean Corpuscular Volume 90.3 fL (80.0-100.0); Mean Platelet Volume 8.4 fL (7.0-11.0); Mono # (Auto) 0.5 th/mm3 (0.0-0.9); Mono % (Auto) 4.9 % (0.0-8.0); Neut # (Auto) 8.7 th/mm3 (1.8-7.7); Neut % (Auto) 87.5 % (16.0-70.0); Platelet Count 199 th/mm3 (150-450); Red Blood Count 4.89 mil/mm3 (4.50-5.90); Red Cell Distribution Width 13.2 % (11.6-17.2)
[2017-12-11 07:08] LABS: Calcium 8.6 mg/dL (8.5-10.1); Carbon Dioxide 24.5 meq/L (21.0-32.0); Potassium 3.8 meq/L (3.5-5.1)
[2017-12-11 08:10] VITALS: O2SAT 94
[2017-12-11 12:49] VITALS: BP 125/80; PULSE 83; RESP 18; TEMP 98.9
--- NOTE | 2017-12-11 13:07 | P.PNGS ---
Subjective Patient reports: no new complaints, feels better (no acute issues,doing well, ambulating) Physical Exam Vital signs: Vital Signs 12/10/17 17:24 12/10/17 17:30 12/10/17 17:45 Temperature 97.7 F Pulse Rate 96 H 84 90 Respiratory Rate 22 17 16 Blood Pressure 107/67 122/66 131/93 H Pulse Oximetry 97 97 100 12/10/17 18:00 12/10/17 18:15 12/10/17 18:23 Temperature Pulse Rate 97 H 90 Respiratory Rate 17 21 23 Blood Pressure 125/83 134/87 Pulse Oximetry 98 99 12/10/17 18:30 12/10/17 19:00 12/10/17 19:30 Temperature 97.4 F L Pulse Rate 98 H 100 H 97 H Respiratory Rate 21 22 20 Blood Pressure 108/89 156/87 H 121/81 Pulse Oximetry 98 98 100 12/10/17 20:00 12/10/17 20:29 12/11/17 00:00 Temperature 97.6 F 97.6 F 97.6 F Pulse Rate 90 90 76 Respiratory Rate 18 18 18 Blood Pressure 156/97 H 156/97 H 115/64 Pulse Oximetry 95 95 94 L 12/11/17 00:41 12/11/17 04:00 12/11/17 07:15 Temperature 97.7 F 97.4 F L Pulse Rate 73 89 Respiratory Rate 18 18 16 Blood Pressure 115/62 103/58 L Pulse Oximetry 97 94 L 12/11/17 12:47 Temperature 98.9 F Pulse Rate 83 Respiratory Rate 18 Blood Pressure 125/80 Pulse Oximetry 94 L Intake & Output 12/10/17 12/11/17 12/11/17 18:59 06:59 18:59 Intake Total 1500 / 1500 1730 / 1730 Output Total 20 / 20 460 / 460 Balance 1480 / 1480 1270 / 1270 Weight 197.3 kg Intake: IV 1250 / 1250 D5W/1/2NS + KCL 20 mEq Inj 1, 1000 / 1000 000 ML @ 125 mls/hr IV.CONT . Q8H TEJINDER Rx#:[id number] Vancomycin Inj 1,000 MG In NS 250 / 250 Inj 250 ML @ 250 mls/hr IV.SIG Q12H TEJINDER Rx#:[id number] Oral 480 / 480 Anesthesia Amount 1500 / 1500 Output: Urine 450 / 450 Estimated Blood Loss 20 Wound Drainage Anterior Neck LILA Drain Other: # Voids 2 Weight On Admission 197.3 kg - Constitutional no acute distress - Routine Respiratory Exam Present: CTA bilaterally - Routine Cardiovascular Exam Present: S1, S2 - Routine Abdominal Exam Present: soft (incisional tenderness) Assessment and Plan - Plan POD 1 Lap band conversion to sleeve gastrectomy PLAN bariatric diet oob ambulate IS 60cc/30 min tele d/c after lunch
== END 2017-12-11 14:28 | disposition home or self-care (01) ==
LOC: HSDI 12-10 06:50 → N07 12-10 19:36
PROVIDERS: ADMIT Surgery; ATTEND Surgery